=== PATIENT | female | born 1985 | race Hispanic/Latino ===

== ENCOUNTER 2020-01-27 20:28 | Observation (INO) | payer OTHER ==
[~2020-01-27] VITALS: Ht 160 cm; Wt 97.5 kg
[~2020-01-27 20:28] MED LIST: ROBAXIN-750750 MG PO
--- OUTSIDE RECORDS SUMMARY | 2020-01-27 20:30 | XMS REPORT ---
Author Author [facility] Address Unknown Phone Unavailable Care Team Providers Care Cloth Spreader Name Role Phone DALJIT DESOUZA DO PP ANAHY BARBOSA Unavailable Unavailable Payers Payer Name Policy Type Policy Number Effective Date Expiration Date [employer] [id number] 2016 00:00[facility]00 [id number] 2015 00:00:00 Problems This patient has no known problems. Allergies, Adverse Reactions, Alerts This patient has no known allergies or adverse reactions. Medications Ordered Medication Name Filled Medication Name Start Date Stop Date Current Medication? Ordering Clinician Indication Dosage Frequency Signature (SIG) Comments Components Methocarbamol (Robaxin-750) 750 Mg Tablet Methocarbamol (Robaxin-750) 750 Mg Tablet 2019-10-03 00:00:00 Yes Anahy Barbosa Do 750 Every 8 Hours as needed for Muscle Spasms Procedures and Interventions Procedure Date / Time Performed Performing Clinician X-ray of chest, two views 2019-10-03 00:00:00 ANAHY BARBOSA Encounters Start Date/Time End Date/Time Encounter Type Admission Type Attending Clinicians Care Facility Care Department Encounter ID 2019-10-03 12:40:00 2019-10-03 15:08:00 Departed Emergency Room 1 ANAHY BARBOSA [facility] [id number] Results Test Description Test Time Test Comments Text Results Atomic Results Result Comments CHEST 2 VIEWS 2019-10-03 14:26:00 [place] [address] Patient Name: YOSELIN MONTOYA MR #: [id number] : 1985 Age/Sex: 34/F Req #: [id number] Adm Physician: Ordered by: ANAHY BARBOSA DO Report #: [id number] Location: ER Room/Bed: Procedure: [id number] DX/CHEST 2 VIEWS Exam Date: 10/03/19 Exam Time: 1332 REPORT STATUS: Signed EXAMINATION: CHEST 2 VIEWS INDICATION: [id number] COMPARISON: None FINDINGS: PA and lateral views TUBES and LINES: None. LUNGS: Lungs are well inflated. Lungs are clear. There is no evidence of pneumonia or pulmonary edema. PLEURA: No pleural effusion or pneumothorax. HEART AND MEDIASTINUM: The cardiomediastinal silhouette is unremarkable. BONES AND SOFT TISSUES: No acute osseous lesion. Soft tissues are unremarkable. UPPER ABDOMEN: No free air under the diaphragm. IMPRESSION: No acute thoracic abnormality. Signed by: Dr. Hermes Quach M.D. on 10/03/2019 2:27 PM Dictated By: HERMES QUACH MD 1429 Transcribed By: ARSALAN on 10/03/19 1427 COPY TO: ANAHY BARBOSA DO Sodium Level 2019-10-03 14:02:00 Sodium Level (test aasa=3616-8) 138 136-145 Potassium Lcfje8718-36-61 14:02:00* Test Item Value Reference Range Comments Potassium Level (test srbj=5762-1) 4.0 3.5-5.1 Chloride Xzhrv2493-41-88 14:02:00* Test Item Value Reference Range Comments Chloride Level (test strn=5191-2) 107 98-107 Carbon Dioxide Bahfi0752-12-60 14:02:00* Test Item Value Reference Range Comments Carbon Dioxide Level (test lhzy=4493-2) 21 22-29 Anion Nli7314-10-39 14:02:00* Test Item Value Reference Range Comments Anion Gap (test febk=61710-2) 14.0 8-16 Blood Urea Zirgaigu1714-32-52 14:02:00* Test Item Value Reference Range Comments Blood Urea Nitrogen (test pbjj=9534-6) 14 7-26 Ybhchpjhfz2985-76-76 14:02:00* Test Item Value Reference Range Comments Creatinine (test ooan=6969-6) 0.71 0.57-1.11 BUN/Creatinine Cebxi7495-22-28 14:02:00* Test Item Value Reference Range Comments BUN/Creatinine Ratio (test ljhr=5042-5) 20 6-25 Estimat Glomerular Filtration Chln0260-14-83 14:02:00* Test Item Value Reference Range Comments Estimat Glomerular Filtration Rate (test dzyz=285800131) > 60 >60 Ranges were taken from the National Kidney Disease Education Program and the [facility] literature.Reference ranges:60 or greater: Ecbwqi60-02 ( for 3 consecutive months): Chronic kidney disease 15 or less: Kidney failure Glucose Oiehn3179-50-00 14:02:00* Test Item Value Reference Range Comments Glucose Level (test hlzf=XUM7170) 100 74-118 Calcium Xaxmy3262-26-14 14:02:00* Test Item Value Reference Range Comments Calcium Level (test afmn=71213-6) 9.1 8.4-10.2 Total Mlednhjfh9655-30-69 14:02:00* Test Item Value Reference Range Comments Total Bilirubin (test eyog=4592-3) 0.3 0.2-1.2 Aspartate Amino Transf (AST/SGOT)2019-10-03 14:02:00* Test Item Value Reference Range Comments Aspartate Amino Transf (AST/SGOT) (test code=Aspartate Amino Transf (AST/SGOT)) 16 5-34 Alanine Aminotransferase (ALT/SGPT)2019-10-03 14:02:00* Test Item Value Reference Range Comments Alanine Aminotransferase (ALT/SGPT) (test fopt=5949-9) 21 0-55 Total Jhkwmlh2680-94-01 14:02:00* Test Item Value Reference Range Comments Total Protein (test mxno=6688-5) 6.9 6.5-8.1 Yahecwq7323-15-00 14:02:00* Test Item Value Reference Range Comments Albumin (test kpmk=3304-6) 3.3 3.5-5.0 Dhjgtmiv0858-75-44 14:02:00* Test Item Value Reference Range Comments Globulin (test xjqw=64177-6) 3.6 2.3-3.5 Albumin/Globulin Qjwnd9663-31-71 14:02:00* Test Item Value Reference Range Comments Albumin/Globulin Ratio (test xiby=1769-1) 0.9 0.8-2.0 Alkaline Sqtidlheppf2055-07-89 14:02:00* Test Item Value Reference Range Comments Alkaline Phosphatase (test ajlz=7099-3) 63 40-150 D-Dimer Quantitative (PE/DVT)2019-10-03 13:55:00* Test Item Value Reference Range Comments D-Dimer Quantitative (PE/DVT) (test krzq=57090-8) 0.31 0.00-0.45 As with all in vitro diagnostic tests, the test results should be interpreted by the physician in conjunction with clinical findings and other test results.Test results are reported in NEW D-dimer units(ug/mLFEU).White Blood Wcnov6347-26-91 13:49:00* Test Item Value Reference Range Comments White Blood Count (test xmou=1689-9) 9.69 4.8-10.8 Red Blood Kqhqw8804-55-79 13:49:00* Test Item Value Reference Range Comments Red Blood Count (test zozy=220-1) 4.95 3.6-5.1 Rwxzutbtsz4359-81-14 13:49:00* Test Item Value Reference Range Comments Hemoglobin (test duug=34591-8) 14.0 12.0-16.0 Xclhvsjtnh2435-05-68 13:49:00* Test Item Value Reference Range Comments Hematocrit (test yufb=7341-7) 42.5 34.2-44.1 Mean Corpuscular Ecpulz1321-13-02 13:49:00* Test Item Value Reference Range Comments Mean Corpuscular Volume (test ndxh=888-7) 85.9 81-99 Mean Corpuscular Udlgdlianz5797-69-05 13:49:00* Test Item Value Reference Range Comments Mean Corpuscular Hemoglobin (test edgz=566-6) 28.3 28-32 Mean Corpuscular Hemoglobin Psjnlih3936-56-17 13:49:00* Test Item Value Reference Range Comments Mean Corpuscular Hemoglobin Concent (test nuoj=657-8) 32.9 31-35 Red Cell Distribution Zxgsa8889-41-81 13:49:00* Test Item Value Reference Range Comments Red Cell Distribution Width (test yeur=04183-8) 13.5 11.7-14.4 Platelet Plgso2822-66-99 13:49:00* Test Item Value Reference Range Comments Platelet Count (test wfsx=229-2) 224 140-360 Neutrophils (%) (Auto)2019-10-03 13:49:00* Test Item Value Reference Range Comments Neutrophils (%) (Auto) (test cyai=11310-8) 61.2 38.7-80.0 Lymphocytes (%) (Auto)2019-10-03 13:49:00* Test Item Value Reference Range Comments Lymphocytes (%) (Auto) (test jrgv=194-3) 27.3 18.0-39.1 Monocytes (%) (Auto)2019-10-03 13:49:00* Test Item Value Reference Range Comments Monocytes (%) (Auto) (test lkqs=8088-0) 8.5 4.4-11.3 Eosinophils (%) (Auto)2019-10-03 13:49:00* Test Item Value Reference Range Comments Eosinophils (%) (Auto) (test ydcs=513-5) 2.2 0.0-6.0 Basophils (%) (Auto)2019-10-03 13:49:00* Test Item Value Reference Range Comments Basophils (%) (Auto) (test qnxj=035-5) 0.6 0.0-1.0 IM GRANULOCYTES %2019-10-03 13:49:00* Test Item Value Reference Range Comments IM GRANULOCYTES % (test code=IM GRANULOCYTES %) 0.2 0.0-1.0 Neutrophils # (Auto)2019-10-03 13:49:00* Test Item Value Reference Range Comments Neutrophils # (Auto) (test eypg=745-4) 5.9 2.1-6.9 Lymphocytes # (Auto)2019-10-03 13:49:00* Test Item Value Reference Range Comments Lymphocytes # (Auto) (test gyop=52214-6) 2.7 1.0-3.2 Monocytes # (Auto)2019-10-03 13:49:00* Test Item Value Reference Range Comments Monocytes # (Auto) (test tbpd=296-0) 0.8 0.2-0.8 Eosinophils # (Auto)2019-10-03 13:49:00* Test Item Value Reference Range Comments Eosinophils # (Auto) (test qtea=725-2) 0.2 0.0-0.4 Basophils # (Auto)2019-10-03 13:49:00* Test Item Value Reference Range Comments Basophils # (Auto) (test kjax=250-9) 0.1 0.0-0.1 Absolute Immature Granulocyte (dwsv2758-33-06 13:49:00* Test Item Value Reference Range Comments Absolute Immature Granulocyte (auto (test code=Absolute Immature Granulocyte (auto) 0.02 0-0.1
[2020-01-27] MEDS ORDERED: CEFEPIME 1GM/NS 0.9% 50 ML 50 ML IV STA (20:51)
[2020-01-27] MEDS ORDERED: SODIUM CHLORIDE 0.9% 1000ML 1,000 ML ONE (20:56)
[2020-01-27] MEDS ORDERED: ACETAMINOPHEN 325 MG TAB PO ONE (21:00)
[2020-01-27] MEDS ORDERED: SODIUM CHLORIDE 0.9% 1000ML 1,000 ML IV STA (21:00)
[2020-01-27 21:01] LABS: BASOPHILS # (AUTO) 0.1 (0.0-0.1); BASOPHILS % 0.5 % (0.0-1.0); EOSINOPHILS # (AUTO) 0.1 (0.0-0.4); EOSINOPHILS % 1.2 % (0.0-6.0); HEMATOCRIT 41.8 % (34.2-44.1); HEMOGLOBIN 13.8 g/dL (12.0-16.0); LYMPHOCYTES # (AUTO) 2.2 (1.0-3.2); LYMPHOCYTES % 20.5 % (18.0-39.1); MEAN CORPUSCULAR HEMOGLOBIN 28.4 pg (28-32); MONOCYTES # (AUTO) 0.9 (0.2-0.8); MONOCYTES % 8.4 % (4.4-11.3); NEUTROPHILS # (AUTO) 7.2 (2.1-6.9); PLATELET COUNT 247 x10e3/uL (140-360); RED BLOOD COUNT 4.86 x10e6/uL (3.6-5.1); RED CELL DISTRIBUTION WIDTH 13.2 % (11.7-14.4)
[2020-01-27] MEDS ORDERED: CEFEPIME 1GM/NS 0.9% 50 ML 50 ML IV ONE (21:04)
[2020-01-27] MEDS ORDERED: ACETAMINOPHEN 325 MG TAB ONE (21:04)
[2020-01-27 21:17] LABS: CLARITY,URINE SL CLOUDY (CLEAR); COLOR,URINE YELLOW (YELLOW)
[2020-01-27 21:18] LABS: BILIRUBIN,URINE NEGATIVE (NEGATIVE); KETONES,URINE 2+ (NEGATIVE); LEUKOCYTE ESTERASE ,URINE NEGATIVE (NEGATIVE); NITRITE,URINE NEGATIVE (NEGATIVE); PROTEIN,URINE DIPSTICK NEGATIVE (NEGATIVE); URINE UROBILINOGEN 1 mg/dL (0.2 - 1)
[2020-01-27 21:19] LABS: PREGNANCY TEST, URINE NEGATIVE (NEGATIVE)
[2020-01-27 21:22] LABS: ALANINE AMINOTRANSFERASE 24 IU/L (0-55); ALBUMIN 3.6 g/dL (3.5-5.0); ALKALINE PHOSPHATASE 63 IU/L (40-150); ANION GAP 10.9 mmol/L (8-16); BLOOD UREA NITROGEN 12 mg/dL (7-26); BUN/CREATININE RATIO 18 (6-25); CARBON DIOXIDE 25 mmol/L (22-29); CHLORIDE 104 mmol/L (98-107); CREATININE, SERUM 0.68 mg/dL (0.57-1.11); EST GLOMERULAR FILTRATION RATE > 60 ML/MIN (60-); GLUCOSE 101 mg/dL (74-118); POTASSIUM 3.9 mmol/L (3.5-5.1); SODIUM 136 mmol/L (136-145)
[2020-01-27 21:32] LABS: BACTERIA,URINE FEW /HPF; EPITHELIAL CELLS,URINE MODERATE /LPF; RBC,URINE 0-5 /HPF (0-5); WBC,URINE (MAN) 0-5 /HPF (0-5)
[2020-01-27] MEDS ORDERED: SODIUM CHLORIDE 0.9% 50ML 50 ML ONE (22:05)
[2020-01-27] MEDS ORDERED: KETOROLAC TROMETHAMINE 30 MG/ML VIAL IV STA (22:05)
[2020-01-27] MEDS ORDERED: IOPAMIDOL 370 MG/ML 200 ML INFUS..BTL INJ ONE (22:05)
--- NOTE | 2020-01-27 22:12 | Diagnostic Imaging Report ---
EXAM: CT Abdomen and Pelvis WITH contrast INDICATION: Right upper quadrant pain COMPARISON: None. TECHNIQUE: Abdomen and pelvis were scanned utilizing a multidetector helical scanner from the lung base to the pubic symphysis after administration of IV contrast. Coronal and sagittal reformations were obtained. Routine protocol was performed. Scan was performed when during portal venous phase. IV CONTRAST: 100 mL of Isovue 370 ORAL CONTRAST: None COMPLICATIONS: None RADIATION DOSE: Total DLP: 895 mGy*cm Estimated effective dose: (DLP x 0.015 x size factor) mSv CTDIvol has been reviewed. It is below the limits set by the Radiation Protocol Committee (RPC). Dose modulation, iterative reconstruction, and/or weight based adjustment of the mA/kV was utilized to reduce the radiation dose to as low as reasonably achievable. FINDINGS: LINES and TUBES: None. LOWER THORAX: Unremarkable HEPATOBILIARY: No focal hepatic lesions. No biliary ductal dilation. GALLBLADDER: Multiple gallstones including a large gallstone at the gallbladder neck, with gallbladder hydrops, the gallbladder measures 10 cm in long axis, 4.1 cm in diameter. Sludge and the gallbladder lumen. No obvious wall thickening or pericholecystic fluid and fat stranding. SPLEEN: No splenomegaly. PANCREAS: No focal masses or ductal dilatation. ADRENALS: No adrenal nodules KIDNEYS/URETERS: Kidneys enhance symmetrically. No hydronephrosis. No cystic or solid mass lesions. No stones. GI TRACT: No abnormal distention, wall thickening, or evidence of bowel obstruction. Appendix is normal. PELVIC ORGANS/BLADDER: A 3.4 cm right ovarian cyst, likely physiologic, no follow-up required. Normal uterus and bladder. LYMPH NODES: Slightly prominent lymph nodes at the gallbladder neck. No lymphadenopathy. VESSELS: Unremarkable. PERITONEUM / RETROPERITONEUM: No free air or fluid. BONES: Unremarkable. SOFT TISSUES: There is a fat containing para-umbilical hernia. IMPRESSION: Multiple gallstones and sludge within the gallbladder lumen, including a large gallstone at the gallbladder neck, with gallbladder hydrops, cholecystitis is possible. Right upper quadrant ultrasound. Signed by: Easton Murphy DO on 01/27/2020 10:09 PM
[2020-01-28] VITALS (10 sets, daily range): BP systolic 106–128; BP diastolic 59–75
--- NOTE | 2020-01-28 00:56 | Diagnostic Imaging Report ---
EXAM: Right Upper Quadrant Ultrasound with Doppler INDICATION: Right upper quadrant pain. COMPARISON: Abdominal CT 01/27/2020. TECHNIQUE: Transverse and longitudinal images of the right upper abdomen were obtained. Grayscale, color Doppler and spectral waveform analysis of the hepatic vasculature and splenic vein were performed. FINDINGS: Liver: Size: 14.6 cm in the right midclavicular line, normal Appearance: Normal echogenicity, smooth contour Mass: No focal masses Gallbladder: Stones/Sludge: Biliary sludge and multiple gallstones, including an shadowing gallstone at the gallbladder neck which remains in that location when patient is placed left lateral decubitus. Wall: 0.3 cm, borderline thickened. The gallbladder wall is slightly thickened, heterogeneous, and hyperechoic at the gallbladder neck. Appearance: No pericholecystic fluid. The gallbladder is distended, more like hydropic, 9.6 cm in long axis and 4 cm in diameter. Sonographic Anderson's Sign: Negative Bile Ducts: Intrahepatic Ducts: No dilatation Extrahepatic Ducts: Common bile duct measures 0.73 cm, mildly dilated Pancreas: Visualized portions of the pancreatic head, neck and proximal body are normal. Right Kidney: Size: 11.6 cm Echogenicity: Normal Parenchymal thickness: Normal Collecting system: No hydronephrosis Stones: None Cyst/Mass: None Vessels: Main Portal Vein: Diameter: 0.9 cm, normal. Normal flow direction. Aorta: Visualized portions are normal Inferior Vena Cava: Visualized portions are normal Free Fluid: No ascites or pleural effusion IMPRESSION: Multiple gallstones and sludge, with gallbladder distention and borderline wall thickening, cholecystitis is suspected, possibly chronic. A gallstone at the gallbladder neck may be impacted, raises concern for acute obstructive calculus cholecystitis. Mildly distended common bile duct, correlate for cholestasis. An MRCP can evaluate for choledocholithiasis. Signed by: Easton Murphy DO on 01/28/2020 12:53 AM
[2020-01-28] MEDS: LEVOFLOXACIN 500MG/D5W 100ML IV SCH (02:11)
[2020-01-28] MEDS ORDERED: ACETAMINOPHEN 650 MG SUPP PR PRN (02:45)
[2020-01-28] MEDS: SODIUM CHLORIDE 0.9% 1000ML 1,000 ML IV SCH (07:27)
[2020-01-28] MEDS: MORPHINE SULFATE 2 MG/ML SYR 1ML IV PRN ×4 (07:27→22:24)
[2020-01-28] MEDS ORDERED: HYDRALAZINE HCL 20 MG/ML VIAL IV PRN (08:15)
[2020-01-28] MEDS: FAMOTIDINE 20 MG/2 ML VIAL IV SCH ×2 (08:50→15:18)
[2020-01-28] MEDS ORDERED: BUPIVACAINE 0.5%/EPI 30 ML SDV INJ ONE (10:44)
--- NOTE | 2020-01-28 10:57 | Consultation ---
DATE OF CONSULTATION: 01/28/2020 CHIEF COMPLAINT: Abdominal pain. HISTORY OF PRESENT ILLNESS: This patient is a 34-year-old female with 2-day history of pain in epigastrium, radiating to the back with nausea, vomiting. The patient has had prior similar pain in the past with fatty food intolerance. PAST MEDICAL HISTORY: Negative for chronic illness. PAST SURGICAL HISTORY: Positive for . ALLERGIES: NO DRUG ALLERGIES. SOCIAL HABITS: No smoking or alcohol abuse. REVIEW OF SYSTEMS: No chest pain, shortness of breath, cough, or fever. PHYSICAL EXAMINATION: VITAL SIGNS: Stable. Afebrile. GENERAL: She is awake, alert, in bywm-gq-cbjxemrj discomfort. HEENT: Sclerae nonicteric. NECK: Supple. LUNGS: Clear. HEART: Regular rate and rhythm. ABDOMEN: Soft with some guarding in the epigastrium. No rebound. LABORATORY DATA: White cell count 10 and hemoglobin of 14. Liver function tests unremarkable with creatinine of 0.7. IMAGING DATA: Ultrasound showed gallstone with large one at the neck of the gallbladder with mildly dilated bile duct. ASSESSMENT: Cholelithiasis and probably cholecystitis. PLAN: Laparoscopic cholecystectomy. Attendant risks discussed. MD KRISHNA Small/MODL /[id number]
--- NOTE | 2020-01-28 13:08 | Operative Report ---
DATE OF PROCEDURE: 01/28/2020 SURGEON: Drake Watts MD PREOPERATIVE DIAGNOSIS: Cholecystitis. POSTOPERATIVE DIAGNOSIS: Cholecystitis. OPERATIVE PROCEDURE: Laparoscopic cholecystectomy. ANESTHESIA: General. INDICATIONS: A 34-year-old female with history of abdominal pain in epigastrium recurrently with vomiting. The patient has a large stone at the neck of the gallbladder with cholecystitis seen on ultrasound as well as clinically. The patient consented for laparoscopic cholecystectomy. Attendant risks discussed. PROCEDURE FINDINGS: Acute cholecystitis with hydrops of gallbladder and stone at the neck of the gallbladder. DESCRIPTION OF PROCEDURE: The patient was brought to the OR, intubated. The abdomen was prepped and draped in sterile fashion. Infraumbilical incision was made and a 10 mm port inserted, insufflation began under direct vision, other port site placed in the midepigastric, right upper quadrant. Gallbladder distended and acute inflammation noted. Decompression carried out, revealing thick bile. Fundus retracted in cephalad direction. Next, the gallbladder retracted in lateral direction. With blunt and sharp dissection, cystic artery and cystic duct isolated and junction of the common bile duct was noted before triple clipping the cystic artery and cystic duct and divided them between clips. Gallbladder detached from the liver with cautery and taken out through umbilical port site. Operative field was irrigated and hemostasis achieved. A 19-Lebanese Pepito drain placed in the [place] pouch and taken out through the right upper quadrant port. All other ports removed under direct vision. Fascia closure with 0-Vicryl. Skin then closed with subcuticular stitch. The patient was extubated and transported to the recovery room. BLOOD LOSS: 10 mL. Drake Watts MD DNL/MODL /[id number]
[2020-01-28] MEDS: ONDANSETRON HCL INJ 2MG/ML 2ML 2 MG/ML VIAL IV PRN ×2 (17:22→22:24)
[2020-01-28] MEDS ORDERED: ONDANSETRON HCL INJ 2MG/ML 2ML 2 MG/ML VIAL ONE (18:49)
[2020-01-28] MEDS ORDERED: NEOSTIGMINE 1 MG/ML 10ML VIAL ONE (18:49)
[2020-01-28] MEDS ORDERED: DEXAMETHASONE SOD PHOS INJ 4 MG/ML VIAL ONE (18:49)
[2020-01-28] MEDS ORDERED: SEVOFLURANE INHAL SOLN 250 ML PEN BTL ONE (18:49)
[2020-01-28] MEDS ORDERED: CEFOXITIN SOD 1 GM VIAL ONE (18:49)
[2020-01-28] MEDS ORDERED: PROPOFOL IV EMULSION 10 MG/ML 20 ML VIAL ONE (18:49)
[2020-01-28] MEDS ORDERED: ROCURONIUM BROMIDE 10 MG/ML 5ML VIAL IV ONE (18:49)
[2020-01-28] MEDS ORDERED: GLYCOPYRROLATE INJ 0.2 MG/ML VIAL ONE (18:49)
[2020-01-28] MEDS ORDERED: LIDOCAINE HCL 2% LOCAL INJ 5 ML SDV VIAL INJ ONE (18:49)
[2020-01-28] MEDS ORDERED: ACETAMINOPHEN 1000 MG/100 ML IV ONE (18:49)
[2020-01-28] MEDS ORDERED: KETOROLAC TROMETHAMINE 30 MG/ML VIAL ONE (18:49)
[2020-01-28] MEDS ORDERED: FENTANYL CITRATE/PF 100MCG/2 ML INJ ONE (19:55)
[2020-01-28] MEDS ORDERED: MIDAZOLAM HCL 2 MG/2 ML VIAL ONE (19:55)
[2020-01-29] MEDS: LEVOFLOXACIN 500MG/D5W 100ML IV SCH (03:13)
[2020-01-29 05:00] VITALS: BP 122/72
[2020-01-29 05:42] LABS: BASOPHILS % 0.3 % (0.0-1.0); EOSINOPHILS % 0.1 % (0.0-6.0); HEMATOCRIT 38.3 % (34.2-44.1); HEMOGLOBIN 12.6 g/dL (12.0-16.0); LYMPHOCYTES # (AUTO) 1.5 (1.0-3.2); LYMPHOCYTES % 12.3 % (18.0-39.1); MEAN CORPUSCULAR HEMOGLOBIN 28.4 pg (28-32); MEAN CORPUSCULAR HGB CONC 32.9 g/dL (31-35); MEAN CORPUSCULAR VOLUME 86.5 fL (81-99); MONOCYTES % 8.1 % (4.4-11.3); NEUTROPHILS # (AUTO) 9.3 (2.1-6.9); NEUTROPHILS % 78.9 % (38.7-80.0); PLATELET COUNT 233 x10e3/uL (140-360); RED BLOOD COUNT 4.43 x10e6/uL (3.6-5.1); RED CELL DISTRIBUTION WIDTH 13.2 % (11.7-14.4)
[2020-01-29] MEDS: ONDANSETRON HCL INJ 2MG/ML 2ML 2 MG/ML VIAL IV PRN (05:48)
[2020-01-29] MEDS: SODIUM CHLORIDE 0.9% 1000ML 1,000 ML IV SCH ×2 (05:48→09:40)
[2020-01-29] MEDS: MORPHINE SULFATE 2 MG/ML SYR 1ML IV PRN (05:48)
[2020-01-29 06:03] LABS: ALANINE AMINOTRANSFERASE 29 IU/L (0-55); ALBUMIN/GLOBULIN RATIO 0.9 (0.8-2.0); ALKALINE PHOSPHATASE 56 IU/L (40-150); ANION GAP 8.3 mmol/L (8-16); BLOOD UREA NITROGEN 8 mg/dL (7-26); BUN/CREATININE RATIO 12 (6-25); CALCIUM 8.7 mg/dL (8.4-10.2); CARBON DIOXIDE 24 mmol/L (22-29); CHLORIDE 108 mmol/L (98-107); CHOL/HDL RATIO 4.6 (3.0-3.6); CHOLESTEROL 171 MD/DL (0-199); CREATININE, SERUM 0.65 mg/dL (0.57-1.11); EST GLOMERULAR FILTRATION RATE > 60 ML/MIN (60-); GLUCOSE 86 mg/dL (74-118); HDL CHOLESTEROL 37 MG/DL (40-60); LDL CHOLESTEROL 121 MG/DL (60-130); POTASSIUM 4.3 mmol/L (3.5-5.1); SODIUM 136 mmol/L (136-145); TRIGLYCERIDES 67 MG/DL (0-149)
[2020-01-29 08:09] VITALS: BP 107/57
[2020-01-29 08:18] VITALS: BP 107/57
[2020-01-29] MEDS ORDERED: TYLENOL WITH C1 EACH PO (09:28)
[2020-01-29] MEDS: FAMOTIDINE 20 MG/2 ML VIAL IV SCH (09:42)
[2020-01-29 11:57] VITALS: BP 107/53
--- NOTE | 2020-01-29 22:18 | Discharge Summary ---
ADMISSION DIAGNOSES: Cholelithiasis. DISCHARGE DIAGNOSIS: Cholelithiasis. HISTORY: None. SURGICAL HISTORY: . FAMILY HISTORY: The patient's maternal grandmother and paternal grandmother and cousin have cancer. The patient's paternal uncle has diabetes. The patient's maternal grandmother had a stroke. SOCIAL HISTORY: The patient admits to history of smoking 1 pack per week x5 years. She quit in 2018. HOSPITAL COURSE: A 34-year-old female admits with abdominal pain off and on for about one year. She came to the ER when the pain was 10/10. Gallbladder ultrasound in the ER showed multiple gallstones and sludge with gallbladder distention and borderline wall thickening. Cholecystitis is suspected, possibly chronic. The patient then had a CT of the abdomen and pelvis, which showed multiple gallstones and sludge. Surgery was consulted and the patient went for a laparoscopic cholecystectomy. Blood cultures were negative. After the lap jack, the patient is feeling much better and able to discharge home. She will follow up with primary care in 1 to 2 weeks. She is tolerating diet and pain is controlled. She will follow up with Dr. Watts in one week as well. The patient understands discharge instructions and agrees to plan. Dictated by Holli Hernandez NP MD XUAN Rowley/BEREKET /[id number]
== END 2020-01-29 14:27 | disposition home or self-care (01) ==
LOC: ER 20:28 → ERHOLD 01-28 02:09 → MED/SURG 01-28 02:45
PROVIDERS: ADMIT Internal Medicine; ATTEND Internal Medicine
DX: K80.00 Calculus of gallbladder with acute cholecystitis without obstruction (principal); E66.01 Morbid (severe) obesity due to excess calories; K82.1 Hydrops of gallbladder; Z83.3 Family history of diabetes mellitus; Z82.49 Family history of ischemic heart disease and other diseases of the circulatory system; Z82.3 Family history of stroke; Z80.3 Family history of malignant neoplasm of breast; Z87.891 Personal history of nicotine dependence
CPT/HCPCS: 36415; 74177; 76705; 80053; 80061; 81001; 81025; 83036; 83605; 83690; 83735; 84100; 84443; 85025; 87040; 88304; 93005; 96374; 99284; G0378; J0692; J0694; J1100; J1885; J1956; J2001; J2250; J2270; J2405; J2710; J3010; J7030; Q9967

== ENCOUNTER → 2021-02-26 | Outpatient (CLI) | payer OTHER ==
[~2021-02-26] MED LIST changes: +TYLENOL WITH C1 EACH PO
== END ==
LOC: MAMMO 13:00
PROVIDERS: ATTEND Obstetrics & Gynecology
DX: N63.20 Unspecified lump in the left breast, unspecified quadrant (principal)
CPT/HCPCS: 77066

== ENCOUNTER → 2021-03-19 | Outpatient (CLI) | payer OTHER | LOC: MAMMO 13:43 | PROVIDERS: ATTEND Obstetrics & Gynecology | DX: N63.10 Unspecified lump in the right breast, unspecified quadrant (principal) ==